=== PATIENT | female | born 1970 | race Hispanic/Latino ===

== ENCOUNTER 2017-03-12 19:56 | Observation (INO) | payer SELFPAY ==
--- NOTE | 2017-03-12 23:07 | C.PDOC ---
History Of Present Illness Patient brought to ED by EMS after being found [address] with strong ETOH breath. No signs of trauma or physical complaints at this time. Time Seen by Provider: 03/12/17 23:04 Chief Complaint (Nursing): Substance Abuse History Per: EMS History/Exam Limitations: intoxication Onset/Duration Of Symptoms: Hrs Current Symptoms Are (Timing): Still Present Suicide/Self Injury Attempted (Context): None Modifying Factor(s): Alcohol Severity: Mild Pain Scale Rating Of: 2 Associated Symptoms: denies: Anxiety Involuntary Hold By: None Recent travel outside of the [place]: No Past Medical History Reviewed: Historical Data, Nursing Documentation, Vital Signs Vital Signs: Last Vital Signs Temp 97.3 F L 03/12/17 20:12 Pulse 94 H 03/12/17 20:12 Resp 20 03/12/17 20:12 BP 127/83 03/12/17 20:12 Pulse Ox 96 03/13/17 04:11 Family History: States: No Known Family Hx - Social History Hx Alcohol Use: Yes Hx Substance Use: No - Immunization History Hx Tetanus Toxoid Vaccination: No Hx Influenza Vaccination: No Hx Pneumococcal Vaccination: No Review Of Systems Constitutional: Negative for: Fever, Chills Cardiovascular: Negative for: Chest Pain Gastrointestinal: Negative for: Nausea, Vomiting, Diarrhea Skin: Negative for: Rash Physical Exam - Physical Exam Appears: Non-toxic, No Acute Distress, Other (Strong ETOH breath) Skin: Warm, Dry, Ecchymosis (To left shoulder and wrist) Head: Normacephalic Oral Mucosa: Moist Chest: Symmetrical Cardiovascular: Rhythm Regular, No Murmur Respiratory: No Rales, No Rhonchi, No Wheezing Gastrointestinal/Abdominal: Soft, No Tenderness, No Guarding, No Rebound Extremity: Capillary Refill (<2 seconds), No Deformity, Other (Full ROM of arms bilateral) Pulses: Left Radial: Normal, Right Radial: Normal Neurological/Psych: Oriented x3, Normal Speech, Normal Cognition, Normal Motor, Normal Sensation ED Course And Treatment O2 Sat by Pulse Oximetry: 96 (RA) Pulse Ox Interpretation: Normal - Other Rad shoulder X-Ray: Interpreted by Me, Viewed By Me Interpretation: humeral head fracture left Progress Note: Now that patient is more awake, alert and oriented states she fell 4 days ago hurting left shoulder Reevaluation Time: 04:58 Reassessment Condition: Improved ED OBSERVATION Date of observation admission: 03/12/17 Time of observation admission: 23:07 - Observation admission statement Patient is being placed in observation because:: acute alcohol intoxication - Goals of Observation Goals of observation are:: sobriety - Progress Note Progress Note: 03/12/17 23:07 vitals stable 03/13/17 02:58 vitals stable Disposition Counseled Patient/Family Regarding: Studies Performed, Diagnosis, Need For Followup - Disposition Disposition: HOME/ ROUTINE Disposition Time: 23:05 Condition: FAIR - Clinical Impression Clinical Impression: Alcohol intoxication - Scribe Statement The provider has reviewed the documentation as recorded by the Neilibpebbles Crockett All medical record entries made by the Can were at my direction and personally dictated by me. I have reviewed the chart and agree that the record accurately reflects my personal performance of the history, physical exam, medical decision making, and the department course for this patient. I have also personally directed, reviewed, and agree with the discharge instructions and disposition.
[2017-03-13 05:21] VITALS: BP 164/95; PULSE 85; RESP 17; TEMP 97.7; O2SAT 97
--- NOTE | 2017-03-13 09:29 | RAD ---
PROCEDURE: Radiographs of the left shoulder. Radiographs of the left humerus. HISTORY: fall COMPARISON: None available. FINDINGS: Comminuted left humeral head fracture with evidence of posterior dislocation. Associated soft tissue swelling. No evidence of radiopaque foreign body. IMPRESSION: Comminuted left humeral head fracture with evidence of posterior dislocation. Study has been marked for PA review.
== END 2017-03-13 06:09 | disposition home or self-care (01) ==
LOC: C.ER 19:56 → C.9OBSV 23:07
PROVIDERS: ADMIT Emergency Medicine; ATTEND Emergency Medicine
DX: F10.129 Alcohol abuse with intoxication, unspecified (principal); Y90.9 Presence of alcohol in blood, level not specified
CPT/HCPCS: 73030; 73060; 99283; G0378